=== PATIENT | male | born 1995 | race Two or more races ===

== ENCOUNTER 2017-02-19 23:24 | Emergency (ER) | payer BC ==
[2017-02-19] MEDS ORDERED: diPHENhydraMINE PO* 50 MG PO ONE (23:55)
--- NOTE | 2017-02-19 23:57 | ED ---
Brandon Ortega Billy, scribed for Devnate Henry MD on 02/19/17 at 2356 . Allergic Reaction/Systemic - HPI Summary HPI Summary: Patient is a 22 year-old male coming to [facility] for evaluation of hives on his arms and back starting about 1 hour ago after using a topical cream. He states that his skin felt "warm and blotchy." No airway involvement. - History of Current Complaint Chief Complaint: EDAllergicReaction Time Seen by Provider: 02/19/17 23:52 Hx Obtained From: Patient Onset/Duration: Gradual Onset Timing: Constant Severity Initially: Moderate Severity Currently: Moderate Character: Hives Aggravating Factor(s): Nothing Alleviating Factor(s): Nothing - Allergies/Home Medications Allergies/Adverse Reactions: Allergies Allergy/AdvReac Type Severity Reaction Status Date / Time No Known Allergies Allergy Verified 02/20/17 00:01 PMH/Surg Hx/FS Hx/Imm Hx Sensory History: Denies: Hx Deafness Opthamlomology History: Denies: Hx Legally Blind Infectious Disease History: Denies: Traveled Outside the [place] in Last 30 Days - Family History Known Family History: Positive: Hypertension - Social History Alcohol Use: None Substance Use Type: Reports: None Smoking Status (MU): Never Smoked Tobacco Review of Systems Negative: Shortness Of Breath Skin: Other - hives All Other Systems Reviewed And Are Negative: Yes Physical Exam Triage Information Reviewed: Yes Vital Signs On Initial Exam: Initial Vitals Temp Pulse Resp BP Pulse Ox 97.3 F 80 20 125/75 99 02/19/17 23:26 02/19/17 23:26 02/19/17 23:26 02/19/17 23:26 02/19/17 23:26 Vital Signs Reviewed: Yes Appearance: Positive: Well-Appearing, No Pain Distress Skin: Positive: Warm, Other - patchy diffuse macular urticarial rash Eyes: Positive: YAMILEX ENT: Positive: Hearing grossly normal, Pharynx normal Neck: Positive: Supple, Nontender Respiratory/Lung Sounds: Positive: Breath Sounds Present Cardiovascular: Positive: RRR Neurological: Positive: Sensory/Motor Intact, Alert, Oriented to Person Place, Time, Normal Gait Psychiatric: Positive: Affect/Mood Appropriate Diagnostics - Vital Signs Vital Signs Temp Pulse Resp BP Pulse Ox 02/19/17 23:26 97.3 F 80 20 125/75 99 - Laboratory Lab Statement: Any lab studies that have been ordered have been reviewed, and results considered in the medical decision making process. Re-Evaluation - Re-Evaluation First Eval Change: Improved Allergic Reaction Course/Dx - Diagnoses Provider Diagnoses: Allergic reaction Discharge - Discharge Plan Condition: Stable Disposition: HOME Patient Education Materials: General Allergic Reaction (ED) [facility] Provider[facility] - The documentation as recorded by the Brandon gordon Billy accurately reflects the service I personally performed and the decisions made by , Devante Henry MD.
[2017-02-20 00:45] VITALS: BP 122/78
== END 2017-02-20 00:45 | disposition home or self-care (01) ==
LOC: ED 23:24
DX: T78.40XA Allergy, unspecified, initial encounter (principal); L50.9 Urticaria, unspecified; X58.XXXA Exposure to other specified factors, initial encounter
CPT/HCPCS: 99282; A9270-GY

== ENCOUNTER 2017-09-03 09:41 | Emergency (ER) | payer BC ==
[2017-09-03 11:29] LABS: Hematocrit 41 % (42-52); Hemoglobin 13.6 g/dl (14.0-18.0); Mean Corpuscular HGB Conc 33 g/dl (31-36); Mean Corpuscular Hemoglobin 26 pg (27-31); Mean Corpuscular Volume 79 fL (80-94); Mean Platelet Volume 8 um3 (7.4-10.4); Red Blood Count 5.16 10^6/ul (4.0-5.4); Red Cell Distribution Width 15 % (10.5-15); White Blood Count 8.9 10^3/ul (3.5-10.8)
[2017-09-03 11:45] LABS: Albumin 4.3 g/dL (3.2-5.2); BUN/Creatinine Ratio 22.1 (8-20); Calcium 8.9 mg/dL (8.6-10.3); EGFR Non-African American 111.2 (>60); Globulin 2.9 g/dL (2-4); Potassium 3.6 mmol/L (3.5-5.0); Total Bilirubin 0.3 mg/dL (0.2-1.0); Total Protein 7.2 g/dL (6.4-8.9)
--- NOTE | 2017-09-03 11:47 | ED ---
Seizure - HPI Summary HPI Summary: Patient is a 22yo M with a history of seizures presents to the ED with CC of seizure like activity. He states while at the stove this morning he must have fallen as this was the last thing he remembered. His friend states she heard a thud and came downstairs 2 minutes later and found the patient on the floor. He immediately arose and complained of fatigue. He notes to some pain at his neck, but has full ROM and states he did not injure his neck. Friend states he did not hit his head, although it was unwitnessed. He recently had an MRI in and sees a neurologist regularly. Placed on Keppra 500mg BID in Jul. He has been taking this regularly until 3 days ago and has not taken any since that time d/t traveling. He denies visual changes, FERNANDES, weakness. Denies any other symptoms at this time. - History Of Current Complaint Chief Complaint: EDSeizure Time Seen by Provider: 09/03/17 09:47 Hx Obtained From: Patient Onset/Duration: Sudden Onset Severity Of Seizure: Self-Limited Character: Other - unknown Aggravating Factor(s): Sleep Deprivation, Meds Non-compliant Alleviating Factor(s): Spontaneous Resolution Associated Signs And Symptoms: Negative Related History: Medication Non-Compliant - Risk Factors SAH Risk Factors: Negative Meningitis Risk Factors: Negative SDH Risk Factor: Male, Seizures - Allergies/Home Medications Allergies/Adverse Reactions: Allergies Allergy/AdvReac Type Severity Reaction Status Date / Time No Known Allergies Allergy Verified 09/03/17 09:50 Home Medications: Home Medications NK [No Home Medications Reported] 09/03/17 [History Confirmed 09/03/17] PMH/Surg Hx/FS Hx/Imm Hx Previously Healthy: Yes Sensory History: Denies: Hx Legally Blind, Hx Deafness Opthamlomology History: Denies: Hx Legally Blind - Immunization History Hx Pertussis Vaccination: No Immunizations Up to Date: Unable to Obtain/Confirm Infectious Disease History: Yes Infectious Disease History: Denies: Traveled Outside the [place] in Last 30 Days - Family History Known Family History: Positive: Hypertension - Social History Occupation: Unemployed Lives: With Family Alcohol Use: None Hx Substance Use: No Substance Use Type: Reports: None Hx Tobacco Use: No Smoking Status (MU): Never Smoked Tobacco Review of Systems Constitutional: Negative Negative: Fever, Chills, Fatigue Eyes: Negative Cardiovascular: Negative Respiratory: Negative Genitourinary: Negative Positive: no symptoms reported, see HPI Musculoskeletal: Negative Neurological: Negative Psychological: Normal All Other Systems Reviewed And Are Negative: Yes Physical Exam Triage Information Reviewed: Yes Vital Signs On Initial Exam: Initial Vitals Temp Pulse Resp BP Pulse Ox 98.9 F 115 21 129/81 99 09/03/17 09:44 09/03/17 09:44 09/03/17 09:44 09/03/17 09:44 09/03/17 09:44 Vital Signs Reviewed: Yes Appearance: Positive: Well-Appearing, Well-Nourished Skin: Positive: Warm, Skin Color Reflects Adequate Perfusion Head/Face: Positive: Normal Head/Face Inspection Eyes: Positive: EOMI, YAMILEX, Conjunctiva Clear Neck: Positive: Supple, No Lymphadenopathy Respiratory/Lung Sounds: Positive: Clear to Auscultation, Breath Sounds Present Cardiovascular: Positive: Normal, RRR, Pulses are Symmetrical in both Upper and Lower Extremities Abdomen Description: Positive: Nontender Musculoskeletal: Positive: Strength/ROM Intact Neurological: Positive: Sensory/Motor Intact, Alert, Oriented to Person Place, Time, Normal Gait, Facial Symmetry, Speech Normal. Negative: Facial Droop, Dysphagia, Finger to Nose, Ataxic Gait Psychiatric: Positive: Normal AVPU Assessment: Alert - [place] Coma Scale Coma Scale Total: 15 Diagnostics - Vital Signs Vital Signs Temp Pulse Resp BP Pulse Ox 09/03/17 11:17 97.7 F 74 16 129/67 99 09/03/17 09:44 98.9 F 115 21 129/81 99 - Laboratory Lab Results: Lab Results 09/03/17 09/03/17 Range/Units 11:10 11:10 WBC 8.9 (3.5-10.8) 10^3/ul RBC 5.16 (4.0-5.4) 10^6/ul Hgb 13.6 L (14.0-18.0) g/dl Hct 41 L (42-52) % MCV 79 L (80-94) fL MCH 26 L (27-31) pg MCHC 33 (31-36) g/dl RDW 15 (10.5-15) % Plt Count 256 (150-450) 10^3/ul MPV 8 (7.4-10.4) um3 Neut % (Auto) 73.8 (38-83) % Lymph % (Auto) 17.1 L (25-47) % [place] % (Auto) 6.5 (1-9) % Eos % (Auto) 2.1 (0-6) % Baso % (Auto) 0.5 (0-2) % Absolute Neuts (auto) 6.5 (1.5-7.7) 10^3/ul Absolute Lymphs (auto) 1.5 (1.0-4.8) 10^3/ul Absolute Monos (auto) 0.6 (0-0.8) 10^3/ul Absolute Eos (auto) 0.2 (0-0.6) 10^3/ul Absolute Basos (auto) 0 (0-0.2) 10^3/ul Absolute Nucleated RBC 0 10^3/ul Nucleated RBC % 0 INR (Anticoag Therapy) 0.97 (0.89-1.11) Result Diagrams: 09/03/17 11:10 09/03/17 11:10 Lab Statement: Any lab studies that have been ordered have been reviewed, and results considered in the medical decision making process. Course/Dx - Course Course Of Treatment: During the course of treatment, patient was evaluated for seizure like activity from this morning. He denies taking his Keppra x 3 days. LOC approximately 2 minutes. Feels similar to previous episodes of seizures. Denies any pain. However, on palpation, there was noted to be some posterior cervical tenderness, but states he knows that nothing is broken and would like to defer at this time for any imaging. Recent MRI in was OK. Denies any other complaints. Lab work OK. Patient requesting discharge. EKG ok. Patient is discharged with encouragement of follow up to neurologist next week. Patient agrees with plan and will return for any changes or worsening symptoms. - Diagnoses Differential Diagnosis/HQI/PQRI: Positive: Metabolic Disorder, Known Seizure Disorder Provider Diagnoses: Seizure Discharge - Discharge Plan Condition: Stable Disposition: HOME Patient Education Materials: Nonepileptic Seizures (ED), Levetiracetam (By mouth) Referrals: No Primary Care Phys,[facility] [Primary Care Provider] - Additional Instructions: As discussed, please follow up with neurologist next week or when you return to your hometown. Please return to taking your Keppra medication as prescribed Return to the ED for any changes or worsening symptoms. Drink plenty of water today and rest.
[2017-09-03 12:55] VITALS: BP 124/70
== END 2017-09-03 12:53 | disposition home or self-care (01) ==
LOC: ED 09:41
DX: G40.909 Epilepsy, unspecified, not intractable, without status epilepticus (principal); Z91.14 Patient's other noncompliance with medication regimen
CPT/HCPCS: 36415; 80053; 83605; 83735; 85025; 85610; 93005; 99282